=== PATIENT | male | born 1985 | race Two or more races ===

== ENCOUNTER 2020-02-08 05:50 | Day surgery (SDC) | payer OTHER ==
[2020-02-08] VITALS (11 sets, daily range): BP systolic 102–120; BP diastolic 54–75
[~2020-02-08] VITALS: Ht 167.6 cm; Wt 70.3 kg
[2020-02-08] MEDS ORDERED: ceFAZolin 1gm IVPB IVPB ONE ×2 (06:00)
[2020-02-08] MEDS ORDERED: oxyCONTIN 10mg tab ORAL ONE (06:00)
[2020-02-08] MEDS ORDERED: celeBREX 200mg Cap **SURGERY PATIENTS ONLY ORAL ONE (06:00)
--- NOTE | 2020-02-08 07:09 | Pre-Procedure Note/Attestation ---
Pre-Procedure Note/Attestation Complete Prior to Procedure Planned Procedure: right Procedure Narrative: rt knee scope, medial and lateral meniscectomy Indications for Procedure Pre-Operative Diagnosis: rt knee medial and lateral meniscus tears Attestation I attest that I discussed the nature of the procedure; its benefits; risks and complications; and alternatives (and the risks and benefits of such alternatives ), prior to the procedure, with the patient (or the patient's legal client support representative). I attest that, if there was a reasonable possibility of needing a blood transfusion, the patient (or the patient's legal client support representative) was given the [facility] standardized written summary, pursuant to the [place] Blood Safety Act ([place] Health and Safety Code # 1645, as amended). I attest that I re-evaluated the patient just prior to the surgery and that there has been no change in the patient's H&P, except as documented below: none Rasta Cheng MD Feb 08, 2020 07:09
[2020-02-08] MEDS ORDERED: fentaNYL 100 mcg/2 mL IV ONE (07:11)
[2020-02-08] MEDS ORDERED: Midazolam 2mg/2ml Inj ONE (07:11)
[2020-02-08] MEDS ORDERED: Tylenol #3 tab (300mg/30mg) ORAL PRN (07:15)
[2020-02-08] MEDS ORDERED: HYDROmorphone 1mg/ml Carpuject SUBQ PRN (07:15)
[2020-02-08] MEDS ORDERED: HYDROcodone/Acetamin 5/325 tab ORAL PRN (07:15)
--- NOTE | 2020-02-08 07:32 | Anethesia Preoperative Eval ---
Anesthesia Pre-op PMH/ROS General Date of Evaluation: Feb 08, 2020 Time of Evaluation: 07:32 Anesthesiologist: jennifer ASA Score: ASA 1 Mallampati Score Class I : Soft palate, uvula, fauces, pillars visible Class II: Soft palate, uvula, fauces visible Class III: Soft palate, base of uvula visible Class IV: Only hard plate visible Mallampati Classification: Class II Surgeon: Vicente Diagnosis: knee pain Surgical Procedure: Knee scope Anesthesia History: none Family History: no anesthesia problems Allergies: Coded Allergies: No Known Allergies (Unverified , 02/04/20) Medications: see eMAR Patient NPO?: Yes NPO Date: Feb 08, 2020 NPO Time: 00:01 Past Medical History Cardiovascular: Denies: HTN, CAD, CA, valve dz, arrhythmia, other Pulmonary: Denies: asthma, COPD, PRIETO, other Gastrointestinal/Genitourinary: Denies: GERD, CRI, ESRD, other Neurologic/Psychiatric: Denies: dementia, CVA, depression/anxiety, TIA, other Endocrine: Denies: DM, hypothyroidism, steroids, other HEENT: Denies: cataract (L), cataract (R), glaucoma, [place] (L), [place] (R), other Hematology/Immune: Denies: anemia, DVT, bleeding disorder, other Musculoskeletal/Integumentary: Denies: OA, RA, DJD, DDD, edema, other Anesthesia Pre-op Phys. Exam Physician Exam Last Vital Signs Date Time Temp Pulse Resp B/P (MAP) Pulse Ox O2 Delivery O2 Flow Rate FiO2 02/08/20 06:26 97.7 59 18 120/73 99 Room Air Constitutional: NAD Neurologic: CN 2-12 intact Cardiovascular: RRR Respiratory: CTA Gastrointestinal: S/NT/ND Airway Exam Mallampati Classification 2 Mallampati Score: Class II MO: full ROM: full Dentures: no upper, no lower Anesthesia Pre-op A/P Studies Pre-op Studies: EKG - SR Risk Assessment & Plan Assessment: denies changes Plan: General Status Change Before Surgery: No Barby Garcia CRNA Feb 08, 2020 07:32
[2020-02-08] MEDS ORDERED: Ropivacaine 5mg/ml Vial 20ml INJ ONE (07:37)
[2020-02-08] MEDS ORDERED: fentaNYL 100 mcg/2 mL IV PRN (07:45)
[2020-02-08] MEDS ORDERED: NS Irrig 2000ml IRRIG ONE ×2 (08:30→09:05)
[2020-02-08] MEDS ORDERED: LR 1000ml ONE (08:30)
[2020-02-08] MEDS ORDERED: Lidocaine 1% MPF 10mg/ml 5ml ONE (09:14)
[2020-02-08] MEDS ORDERED: Metoclopramide 10mg/2ml Inj ONE (09:14)
--- NOTE | 2020-02-08 09:26 | Brief Operative Note ---
Immediate Post Operative Note Operative Note Chief Complaint: rt knee pain Pre-op Diagnosis: rt knee medial and lateral meniscus tears Procedure: rt knee scope, medial and lateral meniscectomy and chondroplasty Post-op Diagnosis: same as pre-op Findings: consistent w/pre-op dx studies Surgeon: md eduardo Pressing Machine Tender: duyen chicas Anesthesiologist: LISA hall Anesthesia: general Specimen: none Complications: none Condition: stable Fluids: ns Estimated Blood Loss: minimal Drains: none Implant(s) used?: No Rasta Cheng MD Feb 08, 2020 09:26
[2020-02-08] MEDS ORDERED: Ketorolac 30mg Inj ONE (09:28)
--- NOTE | 2020-02-08 09:36 | Immediate Post-Op Evaluation ---
Immediate Post-Op Evalulation Immediate Post-Op Evalulation Procedure: knee scope Date of Evaluation: Feb 08, 2020 Time of Evaluation: 09:30 IV Fluids: 500 Blood Pressure Systolic: 102 Blood Pressure Diastolic: 55 Pulse Rate: 57 Respiratory Rate: 14 O2 Sat by Pulse Oximetry: 99 Temperature (Fahrenheit): 99.5 Nausea: No Vomiting: No Patient Status: awake, reacts, patent Hydration Status: adequate Drug: ancef Given Within 1 Hr of Incision: Yes Time Given: 08:50 Barby Garcia CRNA Feb 08, 2020 09:36
[2020-02-08] MEDS ORDERED: D5 1/2NS 1,000 ML IV SCH (16:00)
--- NOTE | 2020-02-08 16:30 | Operative Note - Dictated ---
DATE OF OPERATION: 02/08/2020 PREOPERATIVE DIAGNOSIS: Right knee medial and lateral meniscus tear. POSTOPERATIVE DIAGNOSES: 1. Right knee free edge tear of the lateral meniscus involving 10% of the posterior horn and body of the lateral meniscus. 2. Right knee free edge tear of the anterior horn of the medial meniscus involving 15% of the anterior horn and the medial meniscus. 3. Chondral damage on the patella with unstable chondral flaps over the distal medial patella facet. 4. Multiple loose fragments of cartilage floating around the knee in the suprapatellar pouch and lateral compartment. PROCEDURE: 1. Right knee arthroscopy and extensive intraarticular shaving. 2. Right knee patellofemoral chondroplasty. 3. Right knee resection of multiple loose fragment measuring 5 to 7 mm. 4. Right knee partial lateral meniscectomy involving the posterior and horn body 10% of the lateral meniscus. 5. Right knee partial medial meniscectomy involving 15% anterior horn and body of the medial meniscus. SURGEON: Rasta Cheng MD. SAUSAGE MIXER: Denae Brice PA-C. Superintendent Operating was present during the actual operative portion of the case and was important and essential part of the operation. During the operation, the asset protection assistant held and operated the arthroscopic camera for visualization, assisted by manipulating the leg to help with visualization, and helped with essential parts of the repair process as necessary such as operating surgical instruments under surgeon supervision, suture management, and wound closures. ANESTHESIOLOGIST: Barby Garcia nurse compliance spec. ANESTHESIA: General LMA anesthesia. EBL: Less than 10 mL. TOURNIQUET TIME: 20 minutes. COMPLICATIONS: None. SURGICAL INDICATION: Patient is a 34-year-old male who sustained the above injury to his Knee. The patient was treated non-operative initially, but this did not alleviate the patients symptoms. Therefore, after discussing all non-surgical and surgical options, and discussing all foreseeable risk and benefits of surgery, the patient opted for surgical treatment as described above. PATIENT POSITIONING: Patient was brought to the operating room table and placed supine. All pressure points were well padded. Time out was performed and preop antibiotics were given. General Anesthesia was induced and a well padded tourniquet was placed on the thigh. The lateral post was placed and positioned to allow for opening of the medial compartment of the knee without placing pressure over the fibular head. Patients entire leg was prepped and draped in the usual sterile fashion. Time out was performed and preoperative antibiotics were given and after exsanguinating the lower extremity, the tourniquet was inflated to 275mm of mercury. EXAMINATION OF THE KNEE UNDER ANESTHESIA: Before prepping and draping the knee and while the patient was relaxed under general anesthesia, the knee was examined for ROM, and anterior and posterior, medial and lateral, posterolateral, and posteromedial instability. Pivot shift testing was performed. There was no evidence of loss of motion or instability and the pivot shift testing was negative. PORTAL PLACEMENT: The lateral portal was placed with the knee flexed to 90 degrees at the level of inferior border of the patella in line with the lateral border of the patella. A cm skin incision was made with an eleven blade, and using a blunt obturator, the capsule was gently penetrated. Sterile saline solution was then infused inside the knee with the aid of a pump set at 35 mm mercury pressure. Under direct visualization, placement of the medial portal was preliminary judged using a spinal needle, and it was subsequently established using the same technique as the lateral portal. Care was given not to injure the cutaneous branches of the medial Saphenous nerve or the subcutaneous veins. DIAGNOSTIC ARTHROSCOPY: The suprapatellar patellar pouch was visualized. There were multiple small loose fragments that were floating around the suprapatellar pouch, which were consistent with cartilage fragments. These were 5 to 7 mm. The medial and lateral patellar facets and trochlear groove articular cartilage was visualized. There was chondral damage over the medial aspect of the patella facet consistent with grade 3 chondromalacia. There were unstable chondral flaps. The medial plica shelf and the corresponding medial femoral condyle articular cartilage were visualized. There was no significantly thickening of the medial plica shelf and there were no kissing? lesion over the medial femoral condyle. The lateral gutter and the posterolateral corner of the knee were visualized. There was a loose fragment of cartilage in the popliteus hiatus. The posterolateral corner and the popliteus tendon were intact. At this point, the knee was placed in the figure of four position and the lateral compartment was entered. The lateral femoral condyle, lateral tibial plateau, and the anterior, body, and the posterior horn of the lateral meniscus were visualized and probed. The articular surfaces were intact and devoid of articular cartilage damage. There was a free edge tear of the posterior horn, body, and lateral meniscus involving 10% lateral meniscus. The knee was then placed at 90 degree and the ACL and PCL were visualized and probed. The ACL was completely intact on visualization and probing, and it had excellent tension. The PCL was completely intact on visualization and probing and it had excellent tension. The medial compartment was then entered and the medial femoral condyle, medial tibial plateau, and the anterior, body, and the posterior horn of the medial meniscus were visualized and probed. The articular surfaces were intact and devoid of articular cartilage damage. There was a small tear of the anterior horn of the medial meniscus measuring 15%. The medial gutter was visualized. There was no evidence of defect or loose fragments. The scope was then brought back to the patella femoral compartment. OPERATIVE ARTHROSCOPY: At this point, all loose debris and fragments were removed with the use of suction motorized shaver. Specific attention was given to assure all visible loose fragments were irrigated out of the knee joint with pump inflow and cannula outflow system. The loose fragments were identified and visualized. Using combination of the shaver, suction, and graspers, these loose fragments were removed. These loose fragments measured approximately 5 to 7 mm. All debris left behind was removed with combination of emma and graspers. The frayed articular cartilage of the undersurface of the patella and the trochlear groove were debrided using a motorized shaver. Suction was used to pull in the loose fragments and flaps of the cartilage and to minimize damage to the intact and well attached portion of the cartilage. This allowed for a smooth surface for the articular cartilage gliding. At this point, attention was given to the lateral meniscus. Using combination of baskets and emma, the torn portion of the lateral meniscus was removed. Attention was given to remove all displaced and unstable portion of the lateral meniscus while maintaining as much of the functional portion of the meniscus as possible. Approximately, 10% of the posterior horn and body of the meniscus was removed in this fashion. The transition between the meniscectomy portion and intact portion of the meniscus was smoothed out with combination of small baskets and emma. Excellent transition zone was obtained in this fashion. At this point, attention was given to the medial meniscus. Using combination of baskets and emma, the torn portion of the medial meniscus was removed. Attention was given to remove all displaced and unstable portion of the medial meniscus while maintaining as much of the functional portion of the meniscus as possible. Approximately, 15% of the anterior horn and body of the medial meniscus was removed in this fashion. The transition between the meniscectomy portion and intact portion of the meniscus was smoothed out with combination of small baskets and emma. Excellent transition zone was obtained in this fashion. CONDITION AT DISCHARGE FROM OPERATING ROOM: The knee was irrigated with copious amount of normal saline at the end of the procedure. The scope was removed and the water was drained. The skin edges were re-approximated and sterile dressing was applied. All lap count and instrument counts were correct. Patient tolerated the procedure well without complications and was taken to the recovery room in stable conditions. Rasta Cheng M.D. DR: PRATEEK JOB#: [id number] CC: PAULINO
[2020-02-09 07:18] VITALS: BP 115/61
--- NOTE | 2020-02-09 07:18 | 48 Hour Post Anesthesia Eval ---
Post Anesthesia Evaluation Procedure: knee scope Date of Evaluation: Feb 09, 2020 Time of Evaluation: 07:17 Blood Pressure Systolic: 115 0: 61 Pulse Rate: 56 Respiratory Rate: 14 Temperature (Fahrenheit): 97.5 O2 Sat by Pulse Oximetry: 98 Nausea: No Vomiting: No Hydration Status: adequate Cardiopulmonary Status: stable Mental Status/LOC: patient returned to baseline Post-Anesthesia Complications: none Follow-up care needed: N/A Barby Garcia CRNA Feb 09, 2020 07:18
== END 2020-02-08 11:25 | disposition home or self-care (01) ==
LOC: SUR 05:50
DX: S83.281A Other tear of lateral meniscus, current injury, right knee, initial encounter (principal); M23.41 Loose body in knee, right knee; X58.XXXA Exposure to other specified factors, initial encounter; Y92.9 Unspecified place or not applicable
CPT/HCPCS: 29880; 94003; J0690; J1885; J2250; J2405; J2704; J2765; J2795; J3010; J7120; 94150